=== PATIENT | female | born 1995 | race Caucasian/White ===

== ENCOUNTER 2021-08-18 11:33 | Outpatient (REF) | payer BC, SELFPAY ==
[2021-08-21 15:24] LABS: Chlamydia Result Negative (Negative); GC Result Negative (Negative)
== END 2021-08-18 11:34 | disposition home or self-care (01) ==
LOC: NCHCN 11:33
PROVIDERS: Visit Provider Nurse Practitioner Family
DX: Z11.3 Encounter for screening for infections with a predominantly sexual mode of transmission (principal)
CPT/HCPCS: 87491; 87591

== ENCOUNTER 2021-09-01 00:48 | Outpatient (CLI) | payer BC, SELFPAY ==
--- NOTE | 2021-09-01 | DI.RAD_ITS ---
Exam(s) XR WRIST RT COMPLETE EXAM: XR WRIST RT COMPLETE CLINICAL HISTORY: RT WRIST PAIN, INJURY, M25.531,T14.90XA TECHNIQUE: COMPARISON: No exams were available for comparison FINDINGS: Three views were obtained. No bony or soft tissue abnormality seen. Carpal alignment appears within normal limits. IMPRESSION: RADIATION DOSE DELIVERED: Total DLP
== END 2021-09-01 01:08 ==
PROVIDERS: Visit Provider Nurse Practitioner Family
DX: M25.531 Pain in right wrist (principal); T14.90XA Injury, unspecified, initial encounter
CPT/HCPCS: 73110

== ENCOUNTER 2021-09-08 15:11 | Outpatient (REF) | payer BC, SELFPAY ==
--- NOTE | 2021-09-08 11:50 | PAPFT_PTH ---
PATIENT: Lacie Skinner LOC: [facility]#:[id number] AGE/SX: 25/F ROOM: RE09/08/[address]: Rosario Sosa : 1995 BED: DIS: 09/08/2021 SPEC #: [id number] RECD: 09/11/21 12:55 STATUS: ABUNDIO REPeggy #: [id number] RICARDO: 09/08/21 11:[address]: Rosario Sosa DEPT: [facility] Cytology RECD BY: Laureen Nowak ENTERED: 09/11/21 12:56 SP TYPE: PAPFT OTHR DR: Unknown,Unknown Tissues: 1 - CX/ENDOCX FOR PAP SMEARS Procedures: PAP THIN PREP/[facility] Screening Comments: [id number] (CHLAMYDIA/GC)
[2021-09-12 15:31] LABS: Chlamydia Result Negative (Negative); GC Result Negative (Negative)
== END 2021-09-08 15:12 | disposition home or self-care (01) ==
LOC: NCHCN 15:11
PROVIDERS: Visit Provider Nurse Practitioner Family
DX: Z12.4 Encounter for screening for malignant neoplasm of cervix (principal); Z11.3 Encounter for screening for infections with a predominantly sexual mode of transmission
CPT/HCPCS: 87491; 87591; 88142

== ENCOUNTER 2023-09-30 10:50 | Outpatient (REF) | payer SELFPAY ==
--- NOTE | 2023-09-30 13:45 | PAPFT_PTH ---
PATIENT: Lacie Skinner LOC: [facility] #:[id number] AGE/SX: 27/F ROOM: RE09/30/[address]: Rosario Sosa : 1995 BED: DIS: 09/30/2023 SPEC #: [id number] RECD: 10/01/23 12:34 STATUS: ABUNDIO REQ #: [id number] RICARDO: 09/30/23 13:[address]: Rosario Sosa DEPT: [facility] Cytology RECD BY: Laureen Nowak Tissues: 1 - CX/ENDOCX FOR PAP SMEARS Procedures: PAP THIN PREP/[facility] Screening Comments: [id number] (CHLAMYDIA/GC)
[2023-10-02 14:50] LABS: Chlamydia Result Negative (Negative); GC Result Negative (Negative)
== END 2023-09-30 10:51 | disposition home or self-care (01) ==
LOC: NCHCN 10:50
PROVIDERS: PCP Nurse Practitioner Family; Visit Provider Nurse Practitioner Family
DX: Z12.4 Encounter for screening for malignant neoplasm of cervix (principal); Z11.3 Encounter for screening for infections with a predominantly sexual mode of transmission
CPT/HCPCS: 87491; 87591; 88142